=== PATIENT | male | born 1950 | race African-American/Black ===

== ENCOUNTER 2019-05-22 19:42 | Emergency (ER) | payer MEDICARE, OTHER ==
[2019-05-22] MEDS ORDERED: Sodium Chloride 0.9% 1,000 ML ONE (20:10)
[2019-05-22 20:12] LABS: #Basophils 0.1 thou/uL (0.0-0.2); #Eosinphils 0.1 thou/uL (0.0-0.7); #Lymphocytes 2.5 thou/uL (1.20-3.40); #Monocytes 0.8 thou/uL (0.11-0.59); #Neutrophils 7.2 thou/uL (1.40-6.50); %Eosinophils 0.6 % (0.0-10.0); %Lymphocytes 23.4 % (21.0-51.0); %Monocytes 7.3 % (0.0-10.0); %Neutrophils 67.7 % (42.0-75.0); Hemoglobin 12.8 g/dL (14.0-18.0); Mean Corpuscular HGB CONC 32.1 g/dL (32.0-36.0); Mean Corpuscular Hemoglobin 26.7 pg (27.0-31.0); Mean Corpuscular Volume 83.1 fL (78.0-98.0); Platelet Count 176 thou/uL (130-400); RBC Distribution Width 14.6 % (11.5-14.5); White Blood Cell (WBC) Count 10.7 thou/uL (4.8-10.8)
--- NOTE | 2019-05-22 20:15 | RAD ---
CHEST ONE VIEW: 05/22/19 COMPARISON: 08/05/14 HISTORY: Fever. Low O2 sats. Slight elongation of the aorta. Normal cardiac silhouette. Lungs and pleural spaces are clear. No pne umothorax or acute osseous abnormalities. IMPRESSION: No acute cardiopulmonary process. POS: [facility]
[2019-05-22 20:26] LABS: ALT (SGPT) 55 U/L (8-55); AST (SGOT) 36 U/L (5-34); Albumin 3.9 g/dL (3.4-4.8); Alkaline Phosphatase 51 U/L (40-110); Anion Gap 15 mmol/L (10-20); BUN (Urea Nitrogen) 19 mg/dL (8.4-25.7); Bilirubin, Total 1.1 mg/dL (0.2-1.2); Calc. Creatinine Clearance 0 mL/min (70-130); Calcium 9.6 mg/dL (7.8-10.44); Carbon Dioxide 24 mmol/L (23-31); Chloride 105 mmol/L (98-107); Estimated GFR-MDRD 85; Globulin 3.2 g/dL (2.4-3.5); Glucose 152 mg/dL (80-115); Potassium 3.6 mmol/L (3.5-5.1); Protein, Total 7.1 g/dL (5.8-8.1); Sodium 140 mmol/L (136-145)
[2019-05-22 20:32] LABS: Bilirubin Negative (Negative); Blood, Urine Trace (Negative); Clarity Slightly Cloudy (Clear); Glucose, Urine (Dipstick) Negative (Negative); Leukocyte Trace (Negative); Nitrite Positive (Negative); Protein, Urine (Dipstick) 30 mg/dL (Neg-Trace)
[2019-05-22 20:36] LABS: Bacteria/HPF 3+ HPF (None Seen); Squamous Epithelial 0-3 HPF (0-3)
[2019-05-22] MEDS ORDERED: Azithromycin 500 MG VIAL ONE (21:30)
[2019-05-22] MEDS ORDERED: Sodium Chloride 0.9% 250 ML 250 ML ONE (21:30)
[2019-05-22] MEDS ORDERED: cefTRIAXone\\ROCEPHIN 1 GM VIAL ONE (21:31)
[2019-05-23] MEDS ORDERED: Sodium Chloride 0.9% 500 ML ONE (01:35)
[2019-05-23] MEDS ORDERED: Sodium Chloride 0.9% 1,000 ML ONE (01:36)
== END 2019-05-23 01:55 | disposition short-term general hospital (02) ==
LOC: NAV ERS 19:42
DX: J18.9 Pneumonia, unspecified organism (principal); N39.0 Urinary tract infection, site not specified; F03.90 Unspecified dementia, unspecified severity, without behavioral disturbance, psychotic disturbance, mood disturbance, and anxiety; F20.9 Schizophrenia, unspecified; I10 Essential (primary) hypertension; Z79.899 Other long term (current) drug therapy
CPT/HCPCS: 51701; 71045; 80053; 81003; 81015; 83605; 85025; 87040; 87077; 87086; 87149; 87804; 93005; 96365; 96374; J0456; J0696; J7050

== ENCOUNTER 2019-12-15 12:25 | Emergency (ER) | payer MEDICARE, OTHER ==
[2019-12-15] MEDS ORDERED: Sodium Chloride 0.9% 200 ML ONE (12:51)
[2019-12-15] MEDS ORDERED: cefTRIAXone\\ROCEPHIN 2 GM VIAL ONE (12:51)
[2019-12-15] MEDS ORDERED: Piperacillin/Tazobactam 3.375 GM VIAL ONE (12:51)
[2019-12-15] MEDS ORDERED: Sodium Chloride 0.9% 1,000 ML ONE ×3 (12:52→14:34)
[2019-12-15 13:22] LABS: ALT (SGPT) 63 U/L (8-55); AST (SGOT) 42 U/L (5-34); Albumin 4.3 g/dL (3.4-4.8); Alkaline Phosphatase 126 U/L (40-110); Anion Gap 24 mmol/L (10-20); BUN (Urea Nitrogen) 51 mg/dL (8.4-25.7); Bilirubin, Total 0.4 mg/dL (0.2-1.2); Calc. Creatinine Clearance 0 mL/min (70-130); Calcium 11.1 mg/dL (7.8-10.44); Carbon Dioxide 22 mmol/L (23-31); Chloride 113 mmol/L (98-107); Estimated GFR-MDRD 28; Globulin 3.7 g/dL (2.4-3.5); Sodium 154 mmol/L (136-145)
--- NOTE | 2019-12-15 13:28 | RAD ---
CHEST ONE VIEW: 12/15/19 HISTORY: Chest pain. COMPARISON: 05/22/19. FINDINGS: Heart size is within normal limits. The lungs are clear. No confluent pneumonia, overt edema or pleu ral effusion. IMPRESSION: No significant acute intrathoracic disease. POS: [facility]
[2019-12-15 13:29] LABS: Hemoglobin 15.4 g/dL (14.0-18.0); Mean Corpuscular HGB CONC 28.5 g/dL (32.0-36.0); Mean Corpuscular Hemoglobin 25.8 pg (27.0-31.0); Mean Corpuscular Volume 90.3 fL (78.0-98.0); Mean Platelet Volume 12.5 fL (7.4-10.4); Platelet Count 237 thou/uL (130-400); RBC Distribution Width 16.5 % (11.5-14.5); Red Blood Cell (RBC) Count 5.99 mill/uL (4.70-6.10)
[2019-12-15 13:30] LABS: Band 5 % (5-11); Eosinophils 1 % (0-10); Lymphocytes 16 % (21-51); MDiff Complete? YES; Monocytes 7 % (0-10); Neutrophil 71 % (42-75); Platelet Morphology Comment Appears Adequate
[2019-12-15 13:32] LABS: Glucose 1071 mg/dL (80-115)
[2019-12-15] MEDS ORDERED: Insulin Regular 300 UNITS/3 ML VIAL ONE (13:33)
[2019-12-15 14:24] LABS: Bilirubin Negative (Negative); Clarity Clear (Clear); Glucose, Urine (Dipstick) 500 mg/dL (Negative); Leukocyte Negative (Negative); Nitrite Negative (Negative); Protein, Urine (Dipstick) Negative (Neg-Trace); Urobilinogen 0.2 mg/dL (Less than 2)
[2019-12-15 14:28] LABS: Blood, Urine Negative (Negative)
[2019-12-16 11:30] LABS: SARS-CoV-2 MS2 Positive; SARS-CoV-2 N Gene Negative; SARS-CoV-2 S Gene Negative; SARS-CoV-2 orf1ab Negative
== END 2019-12-15 14:35 | disposition short-term general hospital (02) ==
LOC: NAV ERS 12:25
DX: A41.9 Sepsis, unspecified organism (principal); N17.9 Acute kidney failure, unspecified; R74.0 Nonspecific elevation of levels of transaminase and lactic acid dehydrogenase [LDH]; I10 Essential (primary) hypertension; F03.90 Unspecified dementia, unspecified severity, without behavioral disturbance, psychotic disturbance, mood disturbance, and anxiety; F20.9 Schizophrenia, unspecified; Z86.73 Personal history of transient ischemic attack (TIA), and cerebral infarction without residual deficits; Z79.899 Other long term (current) drug therapy
CPT/HCPCS: 36416; 51702; 71045; 80053; 81003; 83605; 84484; 85025; 87040; 87086; 87149; 87635; 93005; 96365; 96367; J0696; J1815; J2543; J3490; J7050; U0003